=== PATIENT | female | born 1955 | race Caucasian/White ===

== ENCOUNTER 2018-12-08 16:30 | Emergency (ER) | payer OTHER, SELFPAY ==
[2018-12-08 16:42] VITALS: BP 134/85; PULSE 63; RESP 14; O2SAT 99
--- NOTE | 2018-12-08 16:45 | ED_ITS ---
HPI - Chest Pain General Chief Complaint: Chest Pain Stated Complaint: chest pain Time Seen by Provider: 12/08/18 16:43 Source: patient and family (two son) Mode of arrival: ambulatory Limitations: no limitations History of Present Illness HPI narrative: This is a 63-year-old female comes to the emergency department with complaint of chest pain. Patient states she was outside pushing a wheelbarrow full of headache for her horses when she started getting central pressure in her chest. Patient short of breath. She felt nauseated had 1 episode of emesis and felt diaphoretic. Patient felt sort of lightheaded like she might pass out. She states this lasted for about 1-2 minutes. She states that it bothered her not that she sort of laid down in the snow. Her son states that he saw her outside, approach sure try to get her back into the house which he was sort of weak in the legs. EMS was called they evaluated her noted what appeared to be a right bundle branch block on her EKG, patient refused transpor t. Patient is still quite reluctant to be here but is here at the urging of her children. She has a prior history of breast cancer which she is remission for. Patient denies any other past medical history. She denies any recent surgeries. She smokes regularly, she drinks 3-5 alcoholic drinks fairly frequently. She smokes marijuana occasionally and denies other illicit. She has family history of her father having a CABG in his mid 50s as well as another uncle. She has 2 sons at bedside, 1 son states that she has not sharing medical history that she knows about but that they are unclear on. Patient does not currently sure any other information with me. Related Data Allergies Allergy/AdvReac Type Severity Reaction Status Date / Time Sulfa (Sulfonamide Allergy Unknown Verified 12/08/18 16:45 Antibiotics) Review of Systems Review of Systems ROS Unobtainable: All systems reviewed & are unremarkable except as noted in HPI and below Constitutional Denies chills, Denies fever(s), Denies lethargy and Denies weakness Cardiovascular Reports chest pain, Denies chest pain at rest, Reports chest pain with activity, Reports diaphoresis, Denies syncope, Denies edema, Denies irregular heart rhythm, Reports lightheadedness, Denies palpitations, Reports dyspnea on exertion (with chest pain) and Denies orthopnea Respiratory Denies chest congestion, Denies cough, Denies excessive phlegm production, Denies pain on inspiration and Reports dyspnea on exertion (with chest pain) Gastrointestinal Gastrointestinal: Denies abdominal pain, Denies change in bowel habits, Denies diarrhea, Denies nausea and Denies vomiting Genitourinary Denies dysuria, Denies urinary hesitancy and Denies urinary urgency Integumentary/Breasts Denies rash Neurologic Denies syncope and Denies weakness Endocrine Denies palpitations PFSH Medical History Breast cancer (Resolved) Family History Father No problems noted. Social History Smoking Status: Current every day smoker alcohol intake: current substance use type: marijuana Exam Narrative Exam Narrative: GENERAL: Alert and oriented x three, well-nourished, well-appearing female in no acute distress. HEENT: Head normocephalic, atraumatic, EOMI, pupils reactive, face symmetric, moist mucous membranes NECK: Supple, full range of motion CARDIOVASCULAR: Regular rate and rhythm without murmurs, rubs or gallops. RESPIRATORY: Breath sounds equal bilaterally, no wheezes rales or rhonchi. ABDOMEN: Soft, nontender. Normoactive bowel sounds all 4 quadrants. No guarding or rebound, rigidity, no mass : No CVA tenderness EXTREMITIES: Normal range of motion, no clubbing or edema. Neurovascularly intact NEUROLOGICAL: Cranial nerves II through XII grossly intact. Moving all extremities SKIN: Warm, dry, no petechiae, no rashes or lesions. Initial Vital Signs Initial Vital Signs: Vital Signs Pulse Rate 63 12/08/18 16:42 Respiratory Rate 14 12/08/18 16:42 Blood Pressure 134/85 12/08/18 16:42 Pulse Oximetry 99 12/08/18 16:42 Scores HEART Score Heart Score history: Highly Suspicious Heart Score EKG: Non-Specific repolarization disturbance Heart Score Age: 45-64 years old Heart Score risk factors: 1-2 risk factors Course Orders Ordered: ED Orders 12/08/18 16:41 EKG-12 Lead Stat 12/08/18 17:02 XR chest 1V Stat 12/08/18 17:05 Complete Blood Count AUTO DIFF Stat Comprehensive Metabolic Panel Stat Lipase Stat Partial Thromboplastin Time Stat Prothrombin Time INR Stat Troponin & CK Cardiac Panel Stat Discontinued Medications Aspirin (Aspirin Chew) 324 mg PO NOW ONE Stop: 12/08/18 17:03 Last Admin: 12/08/18 17:29 Dose: 324 mg Vital Signs - 8 hr 12/08/18 16:42 12/08/18 17:00 12/08/18 17:02 Pulse Rate 63 64 63 Respiratory Rate 14 22 17 Blood Pressure 134/85 Blood Pressure [Left Arm] 134/85 134/85 Pulse Oximetry 99 100 100 12/08/18 17:30 12/08/18 18:00 Pulse Rate 69 61 Respiratory Rate 15 14 Blood Pressure Blood Pressure [Left Arm] 127/75 139/76 Pulse Oximetry 95 98 MDM - Chest Pain Lab Data Attestation: I reviewed the patient's lab results. Result diagrams: 12/08/18 17:05 12/08/18 17:05 Lab Results 12/08/18 12/08/18 12/08/18 Range/Units 17:05 17:05 17:05 WBC 10.3 (4.5-11.0) X10^3/uL RBC 3.97 L (4.0-5.2) X10^6/uL Hgb 14.1 (12.0-16.0) g/dL Hct 41.0 (36-46) % MCV 103.3 H (80-100) fL MCH 35.5 H (26-34) PG MCHC 34.3 (30-36) % RDW 12.5 (11.6-14.8) % Plt Count 385 (150-400) X10^3/uL Neut % (Auto) 60.8 (50-75) % Lymph % (Auto) 30.1 (25-40) % Harmon % (Auto) 7.4 (3-14) % Eos % (Auto) 0.9 L (2-4) % Baso % (Auto) 0.8 (0-2) % Neut # (Auto) 6300 (2045-2254) /uL Lymph # (Auto) 3100 (8428-3503) /uL Harmon # (Auto) 800 (0-900) /uL Eos # (Auto) 100 (0-450) /uL Baso # (Auto) 100 (0-100) /uL PT 10.2 (10.1-12.7) SECONDS INR 0.9 (0.9-1.3) APTT 27 (26.4-36.2) SECONDS Sodium 143 (137-145) mmol/L Potassium 3.8 (3.4-5.1) mmol/L Chloride 106 (98-107) mmol/L Carbon Dioxide 27 (22-32) mmol/L BUN 10 (7-17) mg/dL Creatinine 0.70 (0.52-1.04) mg/dL Estimated GFR > 60.0 (>60) mL/min BUN/Creatinine Ratio 14.3 (6-22) Glucose 83 (80-110) mg/dL Calcium 9.6 (8.4-10.2) mg/dL Total Bilirubin 0.3 (0.2-1.3) mg/dL AST 29 (14-36) IU/L ALT 27 (9-52) IU/L Alkaline Phosphatase 68 (38-126) U/L Total Creatine Kinase 90 (30-135) U/L CK-MB (CK-2) TNP CK-MB (CK-2) Rel Index TNP Troponin I < 0.012 (0.01-0.034) ng/mL Total Protein 7.4 (6.3-8.2) g/dL Albumin 4.7 (3.5-5.0) g/dL Globulin 2.7 (1.7-4.1) g/dL Albumin/Globulin Ratio 1.7 (1.0-2.8) Lipase 124 (23-300) U/L Imaging Data Chest x-ray: Radiologist's impression: Shahnaz Frank 63 F 1955 [place] [address] XRay Report Signed Patient: Shahnaz Frank LMR#: [id number] : 5Acct:[id number] Age/Sex: 63 / FDate of Service: 12/08/18 Loc: ED Accession Number: [id number] Procedure: XR chest 1V Ordering Provider: Mirna Dent D.O. PROCEDURE: XR CHEST 1V INDICATIONS: chest pain TECHNIQUE: One view of the chest was acquired. COMPARISON: None. FINDINGS: Surgical changes and devices: Surgical clips projecting in the right breast. Lungs and pleura: Lungs are clear. No pleural effusions or pneumothorax. Mediastinum: Mediastinal contours appear normal. Heart size is normal. Bones and chest wall: No suspicious bony lesions. Overlying soft tissues appear unremarkable. IMPRESSION: No acute disease Dictated by: Troy Hernandez M.D. on 12/08/2018 at 17:53 Approved by: Troy Hernandez M.D. on 12/08/2018 at 17:56 ECG Data Attestation: I personally reviewed and interpreted this ECG as follows: Prior ECG tracings: not available for review Interpretation: Sinus rhythm incomplete right bundle branch block, rate of 63 P are 150 QRS of 105 and QTC of 430. No ST elevation or depression, nonspecific change. MDM Narrative Medical decision making narrative: Patient is already asking to leave. She did ask to leave prior to her labs being resulted. I told her that that with not okay. Her children are her ride so they are not willing to take her home at this time. Patient's history is concerning for cardiac cause. Discussed observation and patient is not agreeable, does not wish to stay for serial enzymes. She does not want me to share any of my concerns or information with her children at this time. Patient and I did have a further conversation without her children are at present and she has had symptoms on and off intermittently with chest pain for about 6 months. Discussed that I am highly suspicious for a cardiac cause and that she is having angina and that she could have a heart attack at any time. I discussed that I would like to keep her for observation, serial heart enzymes and stress testing tomorrow. Patient refuses, politely. We discussed the reasons why. She is willing to have me call Dr. Casper who she has seen for primary care and let him know that I think she needs a stress test. It is unclear if she will follow through with this. Patient is already taking 324 mg aspirin daily which she takes for her aches and pains along with Tylenol. Asked her to continue taking aspirin. We did discuss that I cannot guarantee that she will not go home and have a heart attack and . Patient realizes this and realizes the risks. She appears competent and appropriate to make these decisions. She is adamant that she does not want her children to be aware of our conversation, I did tell her that I would put this information on her discharge paperwork but would only give it to her. Contacted Dr. Casper's office, Dr. Whitman is remote control mirror installer. Patient actually has seen their SOLUTION MANAGER Joelle Sullivan, they will have them contact patient about follow up. Discussed AMA, recommendations from ER to stay for stress testing, negative labs, nonspecific EKG changes. Discharge Plan Departure Patient Disposition: Left Against Medical Advice Clinical Impression: Chest pain Discharge Date/Time: 12/08/18 18:35 Interventions: ED Discharge Assessment Last Done: 12/08/18 18:35 Instructions: DI for Chest Pain Activity Restrictions/Additional Instructions: Follow up with your primary care/Dr. Casper in the next 24-48 hours for recheck. Call for an appointment. I recommend that you spend the night in the hospital for repeat heart enzymes, EKG's and stress testing tomorrow. If you have recurrent symptoms you may return at any time for re-evaluation. Return for recurrent chest pain, shortness of breath, passing out, persistent vomiting, lightheadedness, severe abdominal or back pain, swelling in your lower extremities or other new symptoms. Continue to take an aspirin 324 mg daily. Referrals: Nick Casper MD [Physician] - Stand Alone Forms: Against Medical Advice
[2018-12-08 17:00] VITALS: BP 134/85; PULSE 64; RESP 22; O2SAT 100
[2018-12-08 17:02] VITALS: BP 134/85; PULSE 63; RESP 17; O2SAT 100
--- NOTE | 2018-12-08 17:02 | DI.RAD.S_ITS ---
PROCEDURE: XR CHEST 1V INDICATIONS: chest pain TECHNIQUE: One view of the chest was acquired. COMPARISON: None. FINDINGS: Surgical changes and devices: Surgical clips projecting in the right breast. Lungs and pleura: Lungs are clear. No pleural effusions or pneumothorax. Mediastinum: Mediastinal contours appear normal. Heart size is normal. Bones and chest wall: No suspicious bony lesions. Overlying soft tissues appear unremarkable. IMPRESSION: No acute disease Dictated by: Troy Hernandez M.D. on 12/08/2018 at 17:53 Approved by: Troy Hernandez M.D. on 12/08/2018 at 17:56
--- NOTE | 2018-12-08 17:09 | PC.NURSE ---
pt reports, earlier in the day, vomiting x2 with bright red blood, then approx 3pm, developed shortness of breath with exertion, feeding horses, chest heaviness, left neck pain, diaphoretic,nausea and abdominal pain, resting, laying on ice. 911 arrived and refused transport. son brought pt to er, concern, pt had weakness lower ext and pt had incontinent of urine. on arrival neuro exam negative. pain free and asymptomatic on arrival. hx of breast cancer.
[2018-12-08 17:11] LABS: Add Manual Diff / Slide Review NO; Basophils Absolute Auto 100 /uL (0-100); Basophils Percent Auto 0.8 % (0-2); Eosinophils Absolute Auto 100 /uL (0-450); Eosinophils Percent Auto 0.9 % (2-4); Hemoglobin 14.1 g/dL (12.0-16.0); Lymphocytes Absolute Auto 3100 /uL (1100-4500); Lymphocytes Percent Auto 30.1 % (25-40); Mean Corpuscular HGB Conc 34.3 % (30-36); Mean Corpuscular Hemoglobin 35.5 PG (26-34); Mean Corpuscular Volume 103.3 fL (80-100); Monocytes Absolute Auto 800 /uL (0-900); Monocytes Percent Auto 7.4 % (3-14); Neutrophils Absolute Auto 6300 /uL (1500-7000); Neutrophils Percent Auto 60.8 % (50-75); Platelet Count 385 X10^3/uL (150-400); Red Blood Cell Count 3.97 X10^6/uL (4.0-5.2); Red Cell Distribution Width 12.5 % (11.6-14.8); White Blood Cell Count 10.3 X10^3/uL (4.5-11.0)
--- NOTE | 2018-12-08 17:13 | PC.NURSE ---
pt agreed to have xray and labs done.
[2018-12-08 17:16] LABS: INR 0.9 (0.9-1.3); Prothrombin Time 10.2 SECONDS (10.1-12.7)
[2018-12-08 17:19] LABS: PTT Partial Thromboplastin Tim 27 SECONDS (26.4-36.2)
[2018-12-08 17:20] LABS: Alanine Aminotransferase 27 IU/L (9-52); Albumin 4.7 g/dL (3.5-5.0); Albumin Globulin Ratio 1.7 (1.0-2.8); Alkaline Phosphatase 68 U/L (38-126); Aspartate Aminotransferase 29 IU/L (14-36); BUN Creatinine Ratio 14.3 (6-22); Bilirubin Total 0.3 mg/dL (0.2-1.3); Blood Urea Nitrogen 10 mg/dL (7-17); Calcium 9.6 mg/dL (8.4-10.2); Carbon Dioxide 27 mmol/L (22-32); Chloride 106 mmol/L (98-107); Creatine Kinase 90 U/L (30-135); Estimated Glomerular Filt Rate > 60.0 mL/min (>60); Globulin 2.7 g/dL (1.7-4.1); Glucose 83 mg/dL (80-110); HEMOLYSIS < 15 (0-50); Lipase 124 U/L (23-300); Potassium 3.8 mmol/L (3.4-5.1); Sodium 143 mmol/L (137-145); Total Protein 7.4 g/dL (6.3-8.2)
[2018-12-08] MEDS: ASPIRIN 81 MG TAB 324 MG PO (17:29)
[2018-12-08 17:30] VITALS: BP 127/75; PULSE 69; RESP 15; O2SAT 95
[2018-12-08 17:35] LABS: Troponin I < 0.012 ng/mL (0.01-0.034)
[2018-12-08 18:00] VITALS: BP 139/76; PULSE 61; RESP 14; O2SAT 98
== END 2018-12-08 18:35 | disposition left against medical advice (07) ==
PROVIDERS: Emergency Provider Emergency Medicine
DX: R07.89 Other chest pain (principal)
CPT/HCPCS: 36591; 71045; 80053; 82550; 83690; 84484; 85025; 85610; 85730; 93005; 99283; 99285